=== PATIENT | male | born 1955 | race Caucasian/White ===

== ENCOUNTER 2021-04-02 07:30 | Outpatient (RCR) | payer BC, SELFPAY ==
[2021-01-06 08:53] VITALS: PULSE 50
== END 2021-04-02 15:20 | disposition home or self-care (01) ==
LOC: ANHCPREHAB 07:30
PROVIDERS: Visit Provider Internal Medicine Cardiovascular Disease
DX: Z95.5 Presence of coronary angioplasty implant and graft (principal)
CPT/HCPCS: 93798

== ENCOUNTER 2021-12-08 12:11 | Emergency (ER) | payer BC, SELFPAY ==
[2021-12-08 12:14] VITALS: BP 127/80; PULSE 52; RESP 20; TEMP 36.6; O2SAT 99
--- NOTE | 2021-12-08 13:23 | ED.EPISTAXIS ---
HPI - Epistaxis General Chief complaint: Epistaxis Stated complaint: epistaxis Time Seen by Provider: 12/08/21 12:34 History of Present Illness HPI Narrative: 66-year-old male presents the emergency room for evaluation of a nosebleed to his left nare. Patient states he woke up this morning noticed bleeding from his right nostril. Patient was able to stop the bleeding with direct pressure. Patient states about 2 hours later bleeding resumed. Patient states he is on Brilinta status post coronary stent Related Data Home Medications Medication Instructions Recorded Confirmed Porbiotic 55 billion cells PO DAILY 01/06/21 01/06/21 Vitamin D3 1,000 PO DAILY 01/06/21 ascorbic acid (vitamin C) 250 mg 250 mg PO BID 01/06/21 01/06/21 tablet (Vitamin C) aspirin 81 mg tablet 81 mg PO DAILY 01/06/21 01/06/21 cholecalciferol (vitamin D3) 25 25 mcg PO DAILY 01/06/21 01/06/21 mcg (1,000 unit) tablet (Vitamin D3) metoprolol tartrate 25 mg tablet 6.25 mg PO DAILY 01/06/21 01/06/21 multivitamin 1 tablet PO DAILY 01/06/21 01/06/21 omeprazole 20 mg tablet,delayed 20 mg PO DAILY 01/06/21 01/06/21 release rosuvastatin 40 mg tablet 40 mg PO DAILY 01/06/21 01/06/21 ticagrelor 90 mg tablet (Brilinta) 90 mg PO Q12H 01/06/21 01/06/21 Allergies Allergy/AdvReac Type Severity Reaction Status Date / Time No Known Allergies Allergy Unverified 12/08/21 12:18 Review of Systems Review of Systems: CONSTITUTIONAL: Denies fever, chills, or sweats. EYES: Denies visual changes, redness, or discharge. ENT: Reports epistaxis CARDIOVASCULAR: Denies chest pain, palpitations, or edema. RESPIRATORY: Denies cough or dyspnea. GASTROINTESTINAL: Denies abdominal pain, nausea, vomiting, or diarrhea. GENITOURINARY: Denies dysuria or hematuria. SKIN: Denies rash or itching. MUSCULOSKELETAL: Denies back pain, joint pain, or myalgia. NEUROLOGIC: Denies headache, numbness, dizziness, or weakness. PSYCHIATRIC: Denies anxiety or depression. [facility] Family History Family History Father Hyperlipidemia Hypertension Heart disease Acute myocardial infarction Mother Hyperlipidemia Hypertension Heart disease Acute myocardial infarction Diabetes mellitus Sibling Hyperlipidemia Hypertension Heart disease Sibling Diabetes mellitus Cancer Sibling Diabetes mellitus Social History Social History Smoking status: Never smoker Exam Narrative: GENERAL: Well-appearing, well-nourished, and in no acute distress. HEAD: Normocephalic, atraumatic. EYES: PERRLA and EOMI. ENT: resolved epistaxis to left nare. NECK: Supple. No adenopathy or masses. No carotid bruits or JVD CHEST: Clear to auscultation. No respiratory distress. No wheezes rales or rhonchi HEART: Regular rate and rhythm. No murmur heard. Normal peripheral pulses. EXTREMITIES: Normal range of motion. No edema. SKIN: Warm, dry, no rash. NEURO: No focal deficits. Alert and oriented x3. PSYCH: Normal mood and affect. Course Course Emergency Course: 1345: 2 inhalations of Afrin were administered to the left nare. No noted epistaxis. Vital Signs Vital signs: Vital Signs Temperature 36.6 C 12/08/21 12:14 Pulse Rate 52 L 12/08/21 12:14 Respiratory Rate 12/08/21 12:14 Blood Pressure 127/80 12/08/21 12:14 Pulse Oximetry 99 12/08/21 12:14 Oxygen Delivery Room Air 12/08/21 12:14 Temperature 36.6 C 12/08/21 12:14 Pulse Rate 52 L 12/08/21 12:14 Respiratory Rate 12/08/21 12:14 Blood Pressure 127/80 12/08/21 12:14 Pulse Oximetry 99 12/08/21 12:14 Oxygen Delivery Room Air 12/08/21 12:14 Discharge Plan Discharge Clinical Impression: Epistaxis Patient Disposition: Home, Self-Care Condition: Stable Instructions: Antibiotic Form, Nosebleed (ED) Additional Instructions: May use the Afrin twice daily as needed f
== END 2021-12-08 14:44 | disposition home or self-care (01) ==
PROVIDERS: Emergency Provider Nurse Practitioner Family
DX: R04.0 Epistaxis (principal); Z79.82 Long term (current) use of aspirin
CPT/HCPCS: 99283; A9270